=== PATIENT | female | born 1975 | race Caucasian/White ===

== ENCOUNTER 2021-03-09 12:28 | Emergency (ER) | payer OTHER ==
[2021-03-09] MEDS ORDERED: HYDROCODON-ACE1 EAC4 PO (16:28)
[2021-03-15] MEDS ORDERED: SUBOXONE 8 MG-1 EACH SL (11:33)
[2021-03-15] MEDS ORDERED: LISINOPRIL5 MG PO (11:34)
[2021-03-15] MEDS ORDERED: NEURONTIN400 MG PO (11:34)
[2021-03-15] MEDS ORDERED: KLONOPIN1 MG PO (11:35)
[2021-03-29] MEDS ORDERED: TYLENOL325 MG PO (06:43)
[2021-03-29] MEDS ORDERED: IBUPROFEN600 MG PO (06:43)
[2021-03-29] MEDS ORDERED: HYDROCODON-ACE1 EAC2 PO (07:17)
== END 2021-03-09 16:47 | disposition home or self-care (01) ==
LOC: ER1 12:28
DX: S63.114A Dislocation of metacarpophalangeal joint of right thumb, initial encounter (principal); F41.9 Anxiety disorder, unspecified; F17.210 Nicotine dependence, cigarettes, uncomplicated; V49.9XXA Car occupant (driver) (passenger) injured in unspecified traffic accident, initial encounter
CPT/HCPCS: 73130; 99283

== ENCOUNTER → 2021-03-15 | Day surgery (SDC) | payer OTHER ==
[~2021-03-15] VITALS: Ht 152.4 cm; Wt 62.1 kg
[~2021-03-15] MED LIST: HYDROCODON-ACE1 EAC2 PO; HYDROCODON-ACE1 EAC4 PO; IBUPROFEN600 MG PO; KLONOPIN1 MG PO; LISINOPRIL5 MG PO; NEURONTIN400 MG PO; SUBOXONE 8 MG-1 EACH SL; TYLENOL325 MG PO
[2021-03-15 11:16] LABS: HEMOGLOBIN 13.5 gm/dl (12.3-15.3); RED BLOOD COUNT 4.59 M/UL (4.00-5.10); WHITE BLOOD COUNT 9.9 K/UL (4.5-11.0)
[2021-03-15 11:32] LABS: BUN/CREATININE RATIO 12 (0-10)
== END | disposition home or self-care (01) ==
LOC: OR 10:47
PROVIDERS: Orthopaedic Surgery
DX: S63.111A Subluxation of metacarpophalangeal joint of right thumb, initial encounter (principal); V29.9XXA Motorcycle rider (driver) (passenger) injured in unspecified traffic accident, initial encounter; F17.210 Nicotine dependence, cigarettes, uncomplicated; Z98.51 Tubal ligation status; Z20.822 Contact with and (suspected) exposure to COVID-19; Z53.8 Procedure and treatment not carried out for other reasons
CPT/HCPCS: 36415; 80048; 84703; 85025; J0690; J7120; U0002

== ENCOUNTER → 2021-03-29 | Day surgery (SDC) | payer MEDICARE ==
[~2021-03-29] VITALS: Ht 152.4 cm; Wt 62.1 kg
[2021-03-29 06:44] LABS: HEMOGLOBIN 13.5 gm/dl (12.3-15.3); RED BLOOD COUNT 4.57 M/UL (4.00-5.10); WHITE BLOOD COUNT 11.3 K/UL (4.5-11.0)
[2021-03-29 07:13] LABS: BUN/CREATININE RATIO 12 (0-10)
== END | disposition home or self-care (01) ==
LOC: OR 05:54
PROVIDERS: Orthopaedic Surgery
DX: S63.114A Dislocation of metacarpophalangeal joint of right thumb, initial encounter (principal); F41.9 Anxiety disorder, unspecified; F17.210 Nicotine dependence, cigarettes, uncomplicated; Z79.891 Long term (current) use of opiate analgesic; Z79.1 Long term (current) use of non-steroidal anti-inflammatories (NSAID); Z79.899 Other long term (current) drug therapy; V89.2XXA Person injured in unspecified motor-vehicle accident, traffic, initial encounter
CPT/HCPCS: 73130; 76000; 80048; 84703; 85025; C1713; J0690; J1170; J2001; J2250; J2405; J2550; J2704; J3010; J7120